=== PATIENT | female | born 1985 | race Two or more races ===

== ENCOUNTER 2021-03-29 02:29 | Emergency (ER) | payer OTHER ==
[~2021-03-29] VITALS: Ht 167.6 cm; Wt 109.8 kg
[2021-03-29] MEDS ORDERED: PRENA1 CHEW TA1.4 MG (02:39)
== END 2021-03-29 06:16 | disposition home or self-care (01) ==
LOC: ER 02:29
DX: O46.90 Antepartum hemorrhage, unspecified, unspecified trimester (principal); O20.0 Threatened abortion

== ENCOUNTER 2021-04-29 16:59 | Emergency (ER) | payer OTHER ==
[~2021-04-29] VITALS: Ht 167.6 cm; Wt 107.5 kg
[~2021-04-29 16:59] MED LIST: PRENA1 CHEW TA1.4 MG
== END 2021-04-29 21:29 | disposition home or self-care (01) ==
LOC: ER 16:59
DX: O26.851 Spotting complicating pregnancy, first trimester (principal); O26.891 Other specified pregnancy related conditions, first trimester; Z3A.14 14 weeks gestation of pregnancy

== ENCOUNTER 2021-05-23 18:01 | Inpatient (IN) | payer OTHER ==
[~2021-05-23] VITALS: Ht 167.6 cm; Wt 107.5 kg
== END 2021-05-26 10:43 | disposition home or self-care (01) | DRG 819 ==
LOC: OB/GYN 18:01 → LDR 18:01 → OB/GYN 05-24 15:54
PROVIDERS: ADMIT Obstetrics & Gynecology; ATTEND Obstetrics & Gynecology
PROC: 4A1HXFZ Monitoring of Products of Conception, Cardiac Rhythm, External Approach (ICD-10-PCS; 2021-05-23)
PROC: 0UVC7ZZ Restriction of Cervix, Via Natural or Artificial Opening (ICD-10-PCS; principal; 2021-05-24 17:00)
PROC: BY4CZZZ Ultrasonography of Second Trimester, Single Fetus (ICD-10-PCS; 2021-05-25)
DX: O34.32 Maternal care for cervical incompetence, second trimester (principal); O20.8 Other hemorrhage in early pregnancy; Z3A.17 17 weeks gestation of pregnancy

== ENCOUNTER 2021-06-28 17:57 | Inpatient (IN) | payer OTHER ==
[~2021-06-28] VITALS: Ht 167.6 cm; Wt 109.8 kg
[2021-06-28] MEDS ORDERED: PRENATAL TABLE1 EAC1 PO (19:55)
[2021-06-29] MEDS ORDERED: PROGESTERONE200 MG (08:25)
[2021-07-01] MEDS ORDERED: Procardia Xl 30MG TA PO (07:46)
== END 2021-07-01 11:31 | disposition home or self-care (01) | DRG 833 ==
LOC: LDR 17:57 → OB/GYN 06-30 08:33
PROVIDERS: ADMIT Obstetrics & Gynecology Maternal & Fetal Medicine; ATTEND Obstetrics & Gynecology Maternal & Fetal Medicine
PROC: 4A0HXFZ Measurement of Products of Conception, Cardiac Rhythm, External Approach (ICD-10-PCS; principal; 2021-06-28)
PROC: BY4FZZZ Ultrasonography of Third Trimester, Single Fetus (ICD-10-PCS; 2021-06-30)
DX: O34.32 Maternal care for cervical incompetence, second trimester (principal); Z3A.22 22 weeks gestation of pregnancy; Z20.822 Contact with and (suspected) exposure to COVID-19

== ENCOUNTER → 2021-07-02 13:19 | Outpatient (CLI) | payer OTHER ==
[~2021-07-02 13:19] MED LIST changes: +PRENATAL TABLE1 EAC1 PO; +PROGESTERONE200 MG; +Procardia Xl 30MG TA PO
== END | disposition home or self-care (01) ==
LOC: NST 13:19
PROVIDERS: ATTEND Obstetrics & Gynecology
DX: Z34.82 Encounter for supervision of other normal pregnancy, second trimester (principal)

== ENCOUNTER 2021-08-09 12:45 | Inpatient (IN) | payer OTHER ==
[~2021-08-09] VITALS: Ht 167.6 cm; Wt 111.1 kg
[2021-08-09] MEDS ORDERED: NIFEDIPINE ER30 M1 (16:21)
== END 2021-08-24 16:37 | disposition home or self-care (01) | DRG 786 ==
LOC: OB/GYN 12:45 → LDR 12:45 → OB/GYN 08-10 09:56
PROVIDERS: ADMIT Obstetrics & Gynecology Maternal & Fetal Medicine; ATTEND Obstetrics & Gynecology Maternal & Fetal Medicine
PROC: 4A1HXCZ Monitoring of Products of Conception, Cardiac Rate, External Approach (ICD-10-PCS; 2021-08-09)
PROC: BU4CZZZ Ultrasonography of Uterus and Ovaries (ICD-10-PCS; 2021-08-16)
PROC: BY4FZZZ Ultrasonography of Third Trimester, Single Fetus (ICD-10-PCS; 2021-08-16)
PROC: 0UCC7ZZ Extirpation of Matter from Cervix, Via Natural or Artificial Opening (ICD-10-PCS; 2021-08-21)
PROC: 10D00Z1 Extraction of Products of Conception, Low, Open Approach (ICD-10-PCS; principal; 2021-08-21 08:00)
DX: O32.1XX0 Maternal care for breech presentation, not applicable or unspecified (principal); O34.33 Maternal care for cervical incompetence, third trimester; O60.14X0 Preterm labor third trimester with preterm delivery third trimester, not applicable or unspecified; O41.03X0 Oligohydramnios, third trimester, not applicable or unspecified; O76 Abnormality in fetal heart rate and rhythm complicating labor and delivery; Z3A.28 28 weeks gestation of pregnancy; Z37.0 Single live birth; Z20.822 Contact with and (suspected) exposure to COVID-19

== ENCOUNTER 2024-04-13 15:28 | Emergency (ER) | payer OTHER ==
[~2024-04-13] VITALS: Ht 167.6 cm; Wt 112.5 kg
[~2024-04-13 15:28] MED LIST changes: +NIFEDIPINE ER30 M1
[2024-04-13] MEDS ORDERED: CLONAZEPAM0.125 MG PO (15:55)
[2024-04-13] MEDS ORDERED: RESTORIL7.5 MG PO (15:55)
[2024-04-13] MEDS ORDERED: METHYLPREDNISOLONE SOD SUCC 125 MG VIAL IV STA (16:11)
[2024-04-13] MEDS ORDERED: BUDESONIDE 0.5 MG/2 ML AMPUL.NEB IH STA (16:11)
[2024-04-13] MEDS ORDERED: LEVALBUTEROL HCL 1.25 MG/3 ML SOLUTION IH STA (16:11)
[2024-04-13] MEDS ORDERED: MAGNESIUM SULFATE IN WATER 4 GM/100 ML PIGGYBACK IV STA (16:12)
[2024-04-13] MEDS ORDERED: HYDROCODONE/CHLORPHEN P-STIREX 5 ML ML PO STA (16:13)
[2024-04-13 16:46] LABS: HEMATOCRIT 41.4 % (36.0-45.00); HEMOGLOBIN 13.9 g/dL (12.0-15.00); MEAN CELL VOLUME 84.7 fL (80.00-100.00); MEAN CORPUSCULAR HEMOGLOBIN 28.5 pg (27.00-32.0); MEAN CORPUSCULAR HGB CONC 33.6 g/dl (32.0-36.0); PLATELET COUNT 359 K/uL (150-450); RED BLOOD COUNT 4.89 M/uL (4.00-6.00); RED CELL DISTRIBUTION WIDTH 12.8 % (11.5-14.5)
[2024-04-13 17:07] LABS: CALCIUM 9.7 mg/dL (8.5-10.1); CREATININE SERUM 0.89 mg/dL (0.55-1.02); GFR 70.98; POTASSIUM 3.82 mEq/L (3.5-5.1)
[2024-04-13 17:13] LABS: PH,URINE 5.5 (5.0-8.0); URINE APPEARANCE Cloudy; URINE BILIRRUBIN Negative (NEGATIVE); URINE BLOOD Large; URINE COLOR Yellow; URINE GLUCOSE Negative (NEGATIVE); URINE KETONE Trace (NEGATIVE); URINE LEUKOCYTE Small; URINE NITRATE Negative; URINE PROTEIN 30 (NEGATIVE)
[2024-04-13 17:17] LABS: URINE BACTERIA 1879.7 uL (0.0-1933); URINE EPITHELIAL CELLS 84.8 uL (0.0-38.8); URINE RBC 788.3 uL (0.0-20.8); URINE WBC 45.7 uL (0.0-23.2)
[2024-04-13 17:47] LABS: URINE CAST 0.15 uL (0.0-1.40)
[2024-04-13 17:48] LABS: URINE MUCUS MODERATE
== END 2024-04-13 20:44 | disposition home or self-care (01) ==
LOC: ER 15:30
PROVIDERS: General Practice
DX: J45.909 Unspecified asthma, uncomplicated (principal); Z91.013 Allergy to seafood; Z88.0 Allergy status to penicillin; Z20.822 Contact with and (suspected) exposure to COVID-19